=== PATIENT | male | born 1995 | race American Indian/Alaskan Native ===

== ENCOUNTER 2021-07-25 07:45 | Inpatient (IN) | payer MEDICARE, OTHER ==
--- NOTE | 2021-07-25 07:52 | Emergency Department Report ---
ED Chest Pain HPI - General Stated Complaint: CHEST PAIN Time Seen by Provider: 07/25/21 07:50 Source: patient, EMS, old records reviewed (1st visit here) Mode of arrival: Stretcher - History of Present Illness Initial Comments: 26-year-old male with a past medical history of end-stage renal disease curr ently on dialysis (Friday and Friday) x1 year and presents to the hospital complaining of chest pain since 4 AM. Patient complains of intermittent sharp/pressure chest pain to left side of his chest nonradiating. Mild shortness of breath. No nausea, vomiting reported. Patient states of a "cold sweat". Pain is moderate in intensity and worse with movement, palpation, and deep inspiration. Patient denies history of PE/DVT, calf tenderness, leg edema, recent travel. Patient denies no history of CAD in family and is a non- smoker. Denies history of known stress testing. Patient went to his dialysis today but was turned away and sent to the ER due to chest pain complaint. Patie nt denies infectious symptoms or cough. Patient is vaccinated for Covid. 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 - Related Data Allergies Allergy/AdvReac Type Severity Reaction Status Date / Time No Known Allergies Allergy Unverified 07/25/21 09:17 Heart Score - HEART Score History: Slightly suspicious EKG: Normal Age: < 45 Risk factors: 1-2 risk factors Troponin: < normal limit HEART Score: 1 - EKG Read Time Time EKG Completed: 08:24 EKG Read Time: 08:46 ED Review of Systems ROS: Stated complaint: CHEST PAIN Other details as noted in HPI Comment: All other systems reviewed and negative ED Physical Exam - Other Other exam information: General: No acute distress Head: Atraumatic Eyes: normal appearance ENT: Moist mucous membranes Neck: Normal appearance, no midline tenderness Chest: Clear to auscultation bilaterally, left mid chest left parasternal area with reproducible tenderness to palpate CV: Regular rate and rhythm, positive gallop Abdomen: Soft, normal bowel sounds, nontender, nondistended, no rebound or guarding Back: Normal inspection Extremity: Normal inspection, full range of motion, no calf tenderness or leg edema Neuro: Alert O x 3, no facial asymmetry, speech clear, no gross motor sensory deficit Psych: Appropriate behavior Skin: No rash ED Course Vital Signs 07/25/21 07/25/21 07/25/21 07:51 08:31 08:44 Temperature 98.5 F Pulse Rate 122 H Respiratory 26 H 17 Rate Blood Pressure Blood Pressure 136/89 [Right] O2 Sat by Pulse 96 100 99 Oximetry 07/25/21 07/25/21 07/25/21 08:45 10:01 10:15 Temperature Pulse Rate 125 H 118 H 118 H Respiratory 11 L 8 L 14 Rate Blood Pressure 132/83 140/84 140/84 Blood Pressure [Right] O2 Sat by Pulse 98 97 96 Oximetry 07/25/21 07/25/21 07/25/21 10:31 10:45 11:01 Temperature Pulse Rate 121 H 119 H 116 H Respiratory 15 19 17 Rate Blood Pressure 140/84 140/84 140/84 Blood Pressure [Right] O2 Sat by Pulse 99 98 99 Oximetry 07/25/21 07/25/21 07/25/21 11:15 11:31 11:45 Temperature Pulse Rate 116 H 114 H 113 H Respiratory 15 14 10 L Rate Blood Pressure 140/84 140/84 140/84 Blood Pressure [Right] O2 Sat by Pulse 97 98 96 Oximetry 07/25/21 12:01 Temperature Pulse Rate 112 H Respiratory 18 Rate Blood Pressure 140/84 Blood Pressure [Right] O2 Sat by Pulse 98 Oximetry - Reevaluation(s) Reevaluation #1: 07/25/21 15:26 pt states pain med made him sleepy. He declined additional meds. remains tachycardia - Consultations Consultation #1: 07/25/21 15:26 case d/w David with [facility], will evaluate pt, consult placed JOSE score - Jose Score Age > 65: (0) No Aspirin use within the Past 7 Days: (0) No 3 or more CAD Risk Factors: (0) No 2 or more Angina events in past 24 hrs: (0) No Known CAD with more than 50% Stenosis: (0) No Elevated Cardiac Markers: (0) No ST Deviation Greater than 0.5mm: (0) No JOSE Score: 0 ED Medical Decision Making - Lab Data Result diagrams: 07/25/21 08:16 07/25/21 08:16 Lab Results 07/25/21 07/25/21 07/25/21 Range/Units 08:16 08:16 09:20 WBC 8.8 (4.5-11.0) K/mm3 RBC 4.08 (3.65-5.03) M/mm3 Hgb 12.9 (11.8-15.2) gm/dl Hct 38.7 (35.5-45.6) % MCV 95 H (84-94) fl MCH 32 (28-32) pg MCHC 33 (32-34) % RDW 14.4 (13.2-15.2) % Plt Count 158 (140-440) K/mm3 Lymph % (Auto) 10.5 L (13.4-35.0) % [place] % (Auto) 8.4 H (0.0-7.3) % Eos % (Auto) 0.5 (0.0-4.3) % Baso % (Auto) 1.0 (0.0-1.8) % Lymph # (Auto) 0.9 L (1.2-5.4) K/mm3 [place] # (Auto) 0.7 (0.0-0.8) K/mm3 Eos # (Auto) 0.0 (0.0-0.4) K/mm3 Baso # (Auto) 0.1 (0.0-0.1) K/mm3 Seg Neutrophils % 79.6 H (40.0-70.0) % Seg Neutrophils # 7.0 (1.8-7.7) K/mm3 D-Dimer 484.91 H (0-234) ng/mlDDU Sodium 141 (137-145) mmol/L Potassium 4.5 (3.6-5.0) mmol/L Chloride 100.5 (98-107) mmol/L Carbon Dioxide 22 (22-30) mmol/L Anion Gap 23 mmol/L BUN 42 H (9-20) mg/dL Creatinine 15.6 H (0.8-1.3) mg/dL Estimated GFR 5 ml/min BUN/Creatinine Ratio 3 % Glucose 75 (75-100) mg/dL Calcium 10.0 (8.4-10.2) mg/dL Troponin T 0.023 (0.00-0.029) ng/mL TSH (0.270-4.200) mlU/mL Free T4 (0.76-1.46) ng/dL Hepatitis A IgM Ab (NonReactive) Hep Bs Antigen (Negative) Hep B Core IgM Ab (NonReactive) Hepatitis C Antibody (NonReactive) 07/25/21 07/25/21 07/25/21 Range/Units 09:20 09:20 10:29 WBC (4.5-11.0) K/mm3 RBC (3.65-5.03) M/mm3 Hgb (11.8-15.2) gm/dl Hct (35.5-45.6) % MCV (84-94) fl MCH (28-32) pg MCHC (32-34) % RDW (13.2-15.2) % Plt Count (140-440) K/mm3 Lymph % (Auto) (13.4-35.0) % [place] % (Auto) (0.0-7.3) % Eos % (Auto) (0.0-4.3) % Baso % (Auto) (0.0-1.8) % Lymph # (Auto) (1.2-5.4) K/mm3 [place] # (Auto) (0.0-0.8) K/mm3 Eos # (Auto) (0.0-0.4) K/mm3 Baso # (Auto) (0.0-0.1) K/mm3 Seg Neutrophils % (40.0-70.0) % Seg Neutrophils # (1.8-7.7) K/mm3 D-Dimer (0-234) ng/mlDDU Sodium (137-145) mmol/L Potassium (3.6-5.0) mmol/L Chloride (98-107) mmol/L Carbon Dioxide (22-30) mmol/L Anion Gap mmol/L BUN (9-20) mg/dL Creatinine (0.8-1.3) mg/dL Estimated GFR ml/min BUN/Creatinine Ratio % Glucose (75-100) mg/dL Calcium (8.4-10.2) mg/dL Troponin T 0.027 (0.00-0.029) ng/mL TSH 4.450 H (0.270-4.200) mlU/mL Free T4 1.19 (0.76-1.46) ng/dL Hepatitis A IgM Ab Non-reactive (NonReactive) Hep Bs Antigen Nonreactive (Negative) Hep B Core IgM Ab Non-reactive (NonReactive) Hepatitis C Antibody Non-reactive (NonReactive) - EKG Data -: EKG Interpreted by [place] EKG shows normal: sinus rhythm, ST-T waves (no stemi) Rate: tachycardia (126) - EKG Data 07/25/21 15:37 repeat ekg shows junctional tachycardia no stemi - Radiology Data Radiology results: report reviewed CHEST 1 VIEW 07/25/2021 8:14 AM INDICATION / CLINICAL INFORMATION: Chest Pain. COMPARISON: None available. FINDINGS: SUPPORT DEVICES: None. HEART / MEDIASTINUM: No significant abnormality. LUNGS / PLEURA: No significant pulmonary or pleural abnormality. No pneumothorax. ADDITIONAL FINDINGS: No significant additional findings. IMPRESSION: No acute abnormality. cc: HARI WILSON MD NUCLEAR MEDICINE PERFUSION LUNG SCAN INDICATION / CLINICAL INFORMATION: elevated ddimer cp sob. TECHNIQUE: 5.1 mCi of Tc-99m MAA were given by IV. COMPARISON: Chest radiograph dated 07/25/2021. FINDINGS: PERFUSION: No significant perfusion defects. ADDITIONAL FINDINGS: None. IMPRESSION: 1. Low probability for pulmonary embolism. - Medical Decision Making 26-year-old male with past medical history end-stage renal disease and hypertension presents to the hospital complaints of chest pain. Chest pain is reproducible with associated shortness of breath and persistent tachycardia. Mild elevation of D-dimer. V/Q negative for pulmonary embolism. Unfortunately unable to obtain CT angiogram due to lack of appropriate line. Dr. Hanna to per form dialysis. Cardiology consulted for review of chest pain and tachycardia. Hospitalist to admit. Critical Care Time: No Critical care attestation.: If time is entered above; I have spent that time in minutes in the direct care of this critically ill patient, excluding procedure time. ED Disposition Clinical Impression: ESRD (end stage renal disease), Chest pain, Junctional tachycardia, HTN (hypertension) Disposition: 09 ADMITTED INPATIENT Is pt being admited?: Yes Condition: Stable Instructions: Hypertension (ED) Time of Disposition: 15:38
--- NOTE | 2021-07-25 08:25 | XRay Report ---
CHEST 1 VIEW 07/25/2021 8:14 AM INDICATION / CLINICAL INFORMATION: Chest Pain. COMPARISON: None available. FINDINGS: SUPPORT DEVICES: None. HEART / MEDIASTINUM: No significant abnormality. LUNGS / PLEURA: No significant pulmonary or pleural abnormality. No pneumothorax. ADDITIONAL FINDINGS: No significant additional findings. IMPRESSION: No acute abnormality. Signer Name: Rigo Coley MD Signed: 07/25/2021 8:21 AM Workstation Name: [id number]
[2021-07-25 09:05] LABS: Basophils # (Auto) 0.1 K/mm3 (0.0-0.1); Eosinophils % (Auto) 0.5 % (0.0-4.3); Hematocrit 38.7 % (35.5-45.6); Hemoglobin 12.9 gm/dl (11.8-15.2); Lymphocytes # (Auto) 0.9 K/mm3 (1.2-5.4); Lymphocytes % (Auto) 10.5 % (13.4-35.0); Mean Corpuscular HGB Conc 33 % (32-34); Mean Corpuscular Volume 95 fl (84-94); Monocytes # (Auto) 0.7 K/mm3 (0.0-0.8); Monocytes % (Auto) 8.4 % (0.0-7.3); Platelet Count 158 K/mm3 (140-440); Red Blood Count 4.08 M/mm3 (3.65-5.03); Red Cell Distribution Width 14.4 % (13.2-15.2)
[2021-07-25] MEDS ORDERED: MORPHINE 4 MG/1 ML INJ IV NR (09:30)
[2021-07-25] MEDS ORDERED: ONDANSETRON 4 MG/2 ML INJ IV NR (09:30)
[2021-07-25 10:26] LABS: Free T4 (Free Thyroxine) 1.19 ng/dL (0.76-1.46)
[2021-07-25] MEDS ORDERED: SODIUM CHLORIDE 0.9% 100 ML IV PRN (10:30)
--- NOTE | 2021-07-25 11:49 | Electrocardiograph Report ---
[facility] Test Date: 2021-07-25 Test Time: 08:24:25 Pat Name: HARRISON VALVERDE Department: Room: Gender: M Rn Cvor: LORETTA : 1995 Requested By: HARI WILSON Order Number: [id number] Reading MD: Chente Gan Measurements Intervals [place] Rate: 126 P: 0 ME: 82 QRS: 63 QRSD: 80 T: 32 QT: 325 QTc: 471 Interpretive Statements Sinus tachycardia No previous ECG available for comparison Electronically Signed On 07-25-2021 11:49:12 EDT by Chente Gan
--- NOTE | 2021-07-25 12:58 | Emergency Department Report ---
ED General Adult HPI - General Chief complaint: Chest Pain Stated complaint: CHEST PAIN Time Seen by Provider: 07/25/21 07:50 Source: patient, EMS, old records reviewed (1st visit here) Mode of arrival: Stretcher Limitations: No Limitations - History of Present Illness Initial comments: This is a 26 year-old man with ESRD who presents for chest pain Patient usually dialyzes MWF at [facility]. Last HD 10.4 Denies any recent issues with HD, including dizziness, lightheadedness, cramping, chest pain on HD. However, began having chest pain this morning before dialysis and was unable to start dialysis due to pain. Currently, patient denies any new issues including dyspnea, edema, access issues, nausea, vomiting, headaches. Notes ongoing chest pain. Severity scale (0 -10): 10 - Related Data Allergies Allergy/AdvReac Type Severity Reaction Status Date / Time No Known Allergies Allergy Unverified 07/25/21 09:17 ED Review of Systems ROS: Stated complaint: CHEST PAIN Other details as noted in HPI Constitutional: no symptoms reported Eyes: denies: eye pain, eye discharge, vision change ENT: denies: ear pain, throat pain Respiratory: shortness of breath, SOB with exertion Cardiovascular: chest pain Gastrointestinal: denies: abdominal pain, nausea, diarrhea Skin: denies: rash, lesions Neurological: denies: headache, weakness, paresthesias Psychiatric: denies: anxiety, depression ED Past Medical Hx - Past Medical History Previous Medical History?: Yes Hx Hypertension: Yes Hx Renal Disease: Yes - Social History Smoking Status: Never Smoker ED Physical Exam - General Limitations: No Limitations General appearance: alert, in no apparent distress - Head Head exam: Present: atraumatic, normocephalic - Eye Eye exam: Present: normal appearance - ENT ENT exam: Present: normal exam - Neck Neck exam: Present: normal inspection - Respiratory Respiratory exam: Present: normal lung sounds bilaterally - Cardiovascular Cardiovascular Exam: Present: tachycardia - GI/Abdominal GI/Abdominal exam: Present: soft. Absent: tenderness - Back Exam Back exam: Present: normal inspection - Neurological Exam Neurological exam: Present: alert, oriented X3, CN II-XII intact - Psychiatric Psychiatric exam: Present: normal affect - Skin Skin exam: Present: warm ED Course Vital Signs 07/25/21 07/25/21 07/25/21 07:51 08:31 08:44 Temperature 98.5 F Pulse Rate 122 H Respiratory 26 H 17 Rate Blood Pressure Blood Pressure 136/89 [Right] O2 Sat by Pulse 96 100 99 Oximetry 07/25/21 07/25/21 07/25/21 08:45 10:01 10:15 Temperature Pulse Rate 125 H 118 H 118 H Respiratory 11 L 8 L 14 Rate Blood Pressure 132/83 140/84 140/84 Blood Pressure [Right] O2 Sat by Pulse 98 97 96 Oximetry 07/25/21 07/25/21 07/25/21 10:31 10:45 11:01 Temperature Pulse Rate 121 H 119 H 116 H Respiratory 15 19 17 Rate Blood Pressure 140/84 140/84 140/84 Blood Pressure [Right] O2 Sat by Pulse 99 98 99 Oximetry 07/25/21 07/25/21 07/25/21 11:15 11:31 11:45 Temperature Pulse Rate 116 H 114 H 113 H Respiratory 15 14 10 L Rate Blood Pressure 140/84 140/84 140/84 Blood Pressure [Right] O2 Sat by Pulse 97 98 96 Oximetry 07/25/21 12:01 Temperature Pulse Rate 112 H Respiratory 18 Rate Blood Pressure 140/84 Blood Pressure [Right] O2 Sat by Pulse 98 Oximetry ED Medical Decision Making - Lab Data Result diagrams: 07/25/21 08:16 07/25/21 08:16 - Medical Decision Making This is a 26 year old man who presents with chest pain # ESRD: plan for HD after chest pain evaluation completed to ensure no cardiac chest pain; note potential for CT-angio, HD after to ensure no PE if hemodynamically stable - daily labs - renally dose meds - avoid nephrotoxins - renal diet - verbal consent obtained for HD # Anemia: last hemoglobin at goal for ESRD # HTN: UF as tolerated. BP stable # Secondary Hyperparathyroidism: continue home binders as needed # Chest Pain, Tachycardia: care per primary/cardiology, agree with PE rule out Critical care attestation.: If time is entered above; I have spent that time in minutes in the direct care of this critically ill patient, excluding procedure time. ED Disposition Clinical Impression: ESRD (end stage renal disease) Disposition: 02 SHORT TERM HOSPITAL Is pt being admited?: Yes Condition: Stable Referrals: PRIMARY CARE, [Primary Care Provider] - 3-5 Days
[2021-07-25 13:15] LABS: Hepatitis C Virus Antibody Non-Reactive (NonReactive)
[2021-07-25 14:11] LABS: Hepatitis B Surface Antigen Nonreactive (Negative)
--- NOTE | 2021-07-25 15:02 | Nuclear Medicine Report ---
NUCLEAR MEDICINE PERFUSION LUNG SCAN INDICATION / CLINICAL INFORMATION: elevated ddimer cp sob. TECHNIQUE: 5.1 mCi of Tc-99m MAA were given by IV. COMPARISON: Chest radiograph dated 07/25/2021. FINDINGS: PERFUSION: No significant perfusion defects. ADDITIONAL FINDINGS: None. IMPRESSION: 1. Low probability for pulmonary embolism. Signer Name: German Tijerina MD Signed: 07/25/2021 2:57 PM Workstation Name: [id number]
[2021-07-25] MEDS ORDERED: LORazepam 2 MG/ML VIAL IV ONE (16:34)
--- NOTE | 2021-07-25 16:54 | Consultation ---
History of Present Illness Consult date: 07/25/21 Requesting physician: HARI WILSON Consult reason: chest pain, tachycardia History of present illness: Patient is a 26y/o male with a pmhx of ANCA Vasculitis, ESRD on HD, and HTN who presented to [facility] with a complaint of chest pain since 4am this morning. Patient reports that woke up this morning with a chest pain that he describes as a constant tightness/pressure on the left side of his chest. He rated the pain as 9/10. He states that he has not noticed if anything has relieved his pain but reports that palpation and movement worsen the pain. He further reports that lying worsens the pain and makes it a sharp pain. He also endorses lightheadedness, fatigue, slight SOB, orthopnea, palpitations, and a cold sweat. He denies nausea, vomiting, BLE edema. The patient missed his dialysis session today due to his chest pain. The patient is previously unknown to our practice. Cardiology is consulted for chest pain and sinus tachycardia. Past History Past Medical History: ESRD, hypertension, other (ANCA vasculitis) Past Surgical History: Other (AV fistula) Social history: no significant social history Family history: hypertension Medications and Allergies Allergies Allergy/AdvReac Type Severity Reaction Status Date / Time No Known Allergies Allergy Unverified 07/25/21 09:17 Active Meds: Active Medications Amlodipine Besylate (Amlodipine 10 Mg Tab) 10 mg PO QDAY [facility] Hydralazine HCl (Hydralazine 100 Mg Tab) 100 mg PO TID [facility] Sodium Chloride (Nacl 0.9%) 100 mls @ 999 mls/hr IV JULI PRN PRN Reason: Hypotension Losartan Potassium (Losartan 50 Mg Tab) 100 mg PO QDAY [facility] Metoprolol Tartrate (Metoprolol Tartrate 100 Mg Tab) 100 mg PO BID [facility] Review of Systems All systems: negative Constitutional: fatigue, weakness, no weight loss, no weight gain, no fever Ears, nose, mouth and throat: no nose pain, no nasal congestion, no nasal discharge Cardiovascular: chest pain, orthopnea, rapid/irregular heart beat, lightheadedness, shortness of breath, no edema, no syncope Respiratory: shortness of breath, dyspnea on exertion, no cough, no cough with sputum, no excessive sputum, no hemoptysis Gastrointestinal: no abdominal pain, no nausea, no vomiting Musculoskeletal: no neck pain, no shooting arm pain, no arm numbness/tingling Integumentary: no rash, no pruritis, no redness Neurological: no head injury, no transient paralysis, no paralysis Psychiatric: no anxiety, no memory loss Endocrine: no cold intolerance, no heat intolerance Hematologic/Lymphatic: no easy bruising, no easy bleeding Physical Examination Last Vital Signs Temp 98.5 F 07/25/21 07:51 Pulse 117 H 07/25/21 16:01 Resp 9 L 07/25/21 16:01 BP 134/100 07/25/21 16:01 Pulse Ox 99 07/25/21 16:01 General appearance: no acute distress HEENT: Positive: PERRL Neck: Positive: trachea midline Cardiac: Positive: Regular Rhythm, Tachycardia Lungs: Positive: Normal Breath Sounds Neuro: Positive: Grossly Intact Abdomen: Positive: Soft, Active Bowel Sounds Skin: Negative: Rash, Suspicious Lesions, Ulceration Extremities: Present: upper extr. pulses, lower extr. pulses. Absent: edema Results 07/25/21 08:16 07/25/21 08:16 CBC 07/25/21 Range/Units 08:16 WBC 8.8 (4.5-11.0) K/mm3 RBC 4.08 (3.65-5.03) M/mm3 Hgb 12.9 (11.8-15.2) gm/dl Hct 38.7 (35.5-45.6) % Plt Count 158 (140-440) K/mm3 Lymph # (Auto) 0.9 L (1.2-5.4) K/mm3 [place] # (Auto) 0.7 (0.0-0.8) K/mm3 Eos # (Auto) 0.0 (0.0-0.4) K/mm3 Baso # (Auto) 0.1 (0.0-0.1) K/mm3 Comprehensive Metabolic Panel 07/25/21 Range/Units 08:16 Sodium 141 (137-145) mmol/L Potassium 4.5 (3.6-5.0) mmol/L Chloride 100.5 (98-107) mmol/L Carbon Dioxide 22 (22-30) mmol/L BUN 42 H (9-20) mg/dL Creatinine 15.6 H (0.8-1.3) mg/dL Glucose 75 (75-100) mg/dL Calcium 10.0 (8.4-10.2) mg/dL - Imaging and Cardiology Echo: pending EKG: report reviewed, image reviewed EKG interpretations - Telemetry EKG Rhythm: Sinus Tachycardia - EKG Sinus rhythms and dysrhythmias: sinus tachycardia Assessment and Plan Patient is a 26y/o male with a pmhx of ANCA Vasculitis, ESRD on HD, and HTN who presented to [facility] with a complaint of chest pain Atypical Chest Pain HTN * Pain reproducible with palpation and movement. * EKG shows sinus tachycardia 126 no acute ischemic changes. Trops negativex2. CE pending * Patient outpatient regimen: amlodipine 10mg QD, metoprolol 100mg PO BID, losartan 100mg QD, hydralazine 100mg TID, furosemide 80mg PO QD Elevated D-Dimer * Dimer noted to be elevated. * VQ scan shows low probability of PE ESRD on HD * Nephrology consulted Plan: Echo pending. Lexiscan stress test in AM. NPO after midnight. Restart home BP medications. Will hold Lasix pending nephrology recs. Patient seen in conjunction with Dr. Gan who agrees with this plan of care. Will continue to follow - Patient Problems (1) ANCA-associated vasculitis Current Visit: Yes Status: Acute (2) Sinus tachycardia Current Visit: Yes Status: Acute (3) ESRD (end stage renal disease) Current Visit: Yes Status: Acute (4) Chest pain Current Visit: Yes Status: Acute (5) HTN (hypertension) Current Visit: Yes Status: Acute
[2021-07-25] MEDS: LOSARTAN 50 MG TAB PO SCH (17:12)
[2021-07-25] MEDS: amLODIPine 10 MG TAB PO SCH (17:12)
[2021-07-25] MEDS: METOPROLOL TARTRATE 100 MG TAB PO SCH ×2 (17:20→22:20)
[2021-07-25 17:26] LABS: Chol/HDL Ratio 3.09 %
--- NOTE | 2021-07-25 18:39 | History and Physical Report ---
History of Present Illness Date of examination: 07/25/21 Date of admission: 07/25/21 15:38 Chief complaint: Chest pain since 4:30 AM History of present illness: 26-year-old male with history of end-stage renal disease on hemodialysis Friday and Friday for the last 1 year and history of lupus and hypertension comes in for left-sided chest pain since 4:30 AM. Patient went to dialysis and that the hemodialysis was not done. Because of the chest pain. Patient was sent to emergency room for evaluation of chest pain. No shortness of breath. Chest pain is localized to the left mammary region. Reproducible. No radiation. No nausea no vomiting no shortness of breath. Chest pain is about 5 on a scale of 1-10. Heart Score - HEART Score History: Slightly suspicious EKG: Normal Age: < 45 Risk factors: 1-2 risk factors Troponin: < normal limit HEART Score: 1 Past History Past Medical History: ESRD, hypertension, other (ANCA vasculitis) Past Surgical History: Other (AV fistula) Social history: no significant social history Family history: hypertension Review of Systems All systems: negative Constitutional: fatigue, weakness, no weight loss, no weight gain, no fever Ears, nose, mouth and throat: no nose pain, no nasal congestion, no nasal discharge Cardiovascular: chest pain, orthopnea, rapid/irregular heart beat, lighthe adedness, shortness of breath, no edema, no syncope Respiratory: shortness of breath, dyspnea on exertion, no cough, no cough with sputum, no excessive sputum, no hemoptysis Gastrointestinal: no abdominal pain, no nausea, no vomiting Musculoskeletal: no neck pain, no shooting arm pain, no arm numbness/tingling Integumentary: no rash, no pruritis, no redness Neurological: no head injury, no transient paralysis, no paralysis Psychiatric: no anxiety, no memory loss Endocrine: no cold intolerance, no heat intolerance Hematologic/Lymphatic: no easy bruising, no easy bleeding Past History Past Medical History: ESRD, hypertension, other (ANCA vasculitis) Past Surgical History: Other (AV fistula) Social history: no significant social history Family history: hypertension Medications and Allergies Allergies Allergy/AdvReac Type Severity Reaction Status Date / Time No Known Allergies Allergy Unverified 07/25/21 09:17 Active Meds: Active Medications Amlodipine Besylate (Amlodipine 10 Mg Tab) 10 mg PO QDAY [facility] Last Admin: 07/25/21 17:12 Dose: 10 mg Documented by: Hydralazine HCl (Hydralazine 100 Mg Tab) 100 mg PO TID [facility] Sodium Chloride (Nacl 0.9%) 100 mls @ 999 mls/hr IV JULI PRN PRN Reason: Hypotension Losartan Potassium (Losartan 50 Mg Tab) 100 mg PO QDAY [facility] Last Admin: 07/25/21 17:12 Dose: 100 mg Documented by: Metoprolol Tartrate (Metoprolol Tartrate 100 Mg Tab) 100 mg PO BID [facility] Last Admin: 07/25/21 17:20 Dose: 100 mg Documented by: Exam - Constitutional Vitals: Temp Pulse Resp BP Pulse Ox 98.5 F 117 H 9 L 134/100 99 07/25/21 07:51 07/25/21 16:01 07/25/21 16:01 07/25/21 16:01 07/25/21 16:01 General appearance: Present: no acute distress, well-nourished - EENT Eyes: Present: PERRL ENT: hearing intact, clear oral mucosa - Neck Neck: Present: supple, normal ROM - Respiratory Respiratory effort: normal Respiratory: bilateral: CTA - Cardiovascular Heart rate: 78 Rhythm: regular Heart Sounds: Present: S1 & S2. Absent: rub, click Details: Chest pain is reproducible on the left mammary region. On palpation left mammary region is tender. Right-sided chest no tenderness present. - Extremities Extremities: pulses symmetrical, No edema Peripheral Pulses: within normal limits - Abdominal General gastrointestinal: Present: soft, non-tender, non-distended, normal bowel sounds Male genitourinary: Present: normal - Rectal Rectal Exam: deferred - Integumentary Integumentary: Present: clear, warm, dry - Musculoskeletal Musculoskeletal: gait normal, strength equal bilaterally - Psychiatric Psychiatric: appropriate mood/affect, intact judgment & insight - Neurologic Neurologic: CNII-XII intact, moves all extremities HEART Score - HEART Score EKG: Normal Age: < 45 Risk factors: 1-2 risk factors Troponin: Troponin T 0.038 ng/mL (0.00-0.029) H D 07/25/21 15:36 Troponin: < normal limit Results - Labs CBC & Chem 7: 07/26/21 05:13 07/26/21 05:13 Labs: Laboratory Last Values WBC 8.8 K/mm3 (4.5-11.0) 07/25/21 08:16 RBC 4.08 M/mm3 (3.65-5.03) 07/25/21 08:16 Hgb 12.9 gm/dl (11.8-15.2) 07/25/21 08:16 Hct 38.7 % (35.5-45.6) 07/25/21 08:16 MCV 95 fl (84-94) H 07/25/21 08:16 MCH 32 pg (28-32) 07/25/21 08:16 MCHC 33 % (32-34) 07/25/21 08:16 RDW 14.4 % (13.2-15.2) 07/25/21 08:16 Plt Count 158 K/mm3 (140-440) 07/25/21 08:16 Lymph % (Auto) 10.5 % (13.4-35.0) L 07/25/21 08:16 [place] % (Auto) 8.4 % (0.0-7.3) H 07/25/21 08:16 Eos % (Auto) 0.5 % (0.0-4.3) 07/25/21 08:16 Baso % (Auto) 1.0 % (0.0-1.8) 07/25/21 08:16 Lymph # (Auto) 0.9 K/mm3 (1.2-5.4) L 07/25/21 08:16 [place] # (Auto) 0.7 K/mm3 (0.0-0.8) 07/25/21 08:16 Eos # (Auto) 0.0 K/mm3 (0.0-0.4) 07/25/21 08:16 Baso # (Auto) 0.1 K/mm3 (0.0-0.1) 07/25/21 08:16 Seg Neutrophils % 79.6 % (40.0-70.0) H 07/25/21 08:16 Seg Neutrophils # 7.0 K/mm3 (1.8-7.7) 07/25/21 08:16 D-Dimer 484.91 ng/mlDDU (0-234) H 07/25/21 09:20 Sodium 141 mmol/L (137-145) 07/25/21 08:16 Potassium 4.5 mmol/L (3.6-5.0) 07/25/21 08:16 Chloride 100.5 mmol/L (98-107) 07/25/21 08:16 Carbon Dioxide 22 mmol/L (22-30) 07/25/21 08:16 Anion Gap 23 mmol/L 07/25/21 08:16 BUN 42 mg/dL (9-20) H 07/25/21 08:16 Creatinine 15.6 mg/dL (0.8-1.3) H 07/25/21 08:16 Estimated GFR 5 ml/min 07/25/21 08:16 BUN/Creatinine Ratio 3 % 07/25/21 08:16 Glucose 75 mg/dL (75-100) 07/25/21 08:16 Calcium 10.0 mg/dL (8.4-10.2) 07/25/21 08:16 Troponin T 0.038 ng/mL (0.00-0.029) H D 07/25/21 15:36 Triglycerides 86 mg/dL (2-149) 07/25/21 15:36 Cholesterol 130 mg/dL (50-199) 07/25/21 15:36 LDL Cholesterol Direct 75 mg/dL (50-130) 07/25/21 15:36 HDL Cholesterol 42 mg/dL (40-59) 07/25/21 15:36 Cholesterol/HDL Ratio 3.09 % 07/25/21 15:36 TSH 4.450 mlU/mL (0.270-4.200) H 07/25/21 09:20 Free T4 1.19 ng/dL (0.76-1.46) 07/25/21 09:20 Hepatitis A IgM Ab Non-reactive (NonReactive) 07/25/21 09:20 Hep Bs Antigen Nonreactive (Negative) 07/25/21 09:20 Hep B Core IgM Ab Non-reactive (NonReactive) 07/25/21 09:20 Hepatitis C Antibody Non-reactive (NonReactive) 07/25/21 09:20 Short CBC 07/25/21 07/26/21 Range/Units 08:16 05:13 WBC 8.8 5.8 (4.5-11.0) K/mm3 Hgb 12.9 10.6 L (11.8-15.2) gm/dl Hct 38.7 31.8 L D (35.5-45.6) % Plt Count 158 146 (140-440) K/mm3 BMP 07/25/21 07/26/21 08:16 05:13 Sodium 141 138 Potassium 4.5 4.8 Chloride 100.5 100.1 Carbon Dioxide 22 24 BUN 42 H 56 H Creatinine 15.6 H 19.7 H Glucose 75 74 L Calcium 10.0 9.5 Cardiac Enzymes 07/25/21 07/25/21 07/25/21 Range/Units 08:16 10:29 15:36 Troponin T 0.023 0.027 0.038 H D (0.00-0.029) ng/mL Liver Function 07/26/21 Range/Units 05:13 Total Bilirubin 0.40 (0.1-1.2) mg/dL AST 8 (5-40) units/L ALT < 5 L (7-56) units/L Alkaline Phosphatase 47 (35-129) units/L Albumin 3.8 L (3.9-5) g/dL Assessment and Plan Advance Directives: Yes (Full code) VTE prophylaxis?: Chemical Plan of care discussed with patient/family: Yes - Patient Problems (1) ANCA-associated vasculitis Current Visit: Yes Status: Acute (2) Chest pain Current Visit: Yes Status: Acute Plan to address problem: Chest pain is consistent with costochondritis. We will get serial cardiac enzymes and Lexiscan in the morning. If Lexiscan is not done tomorrow because of the imaging studies he had in the emergency room patient may be discharged tomorrow with outpatient Lexiscan. (3) ESRD (end stage renal disease) Current Visit: Yes Status: Chronic Plan to address problem: Continue hemodialysis Nephrology consult. (4) HTN (hypertension) Current Visit: Yes Status: Chronic Qualifiers: Hypertension type: primary hypertension Qualified Code(s): I10 - Essential (primary) hypertension Plan to address problem: Continue antihypertensives and adjust medications. (5) Junctional tachycardia Current Visit: Yes Status: Acute Plan to address problem: Resolved in the emergency room (6) DVT prophylaxis Current Visit: Yes Status: Acute Plan to address problem: On heparin and GI prophylaxis
[2021-07-25] MEDS ORDERED: oxyCODONE /ACETAMINOPHEN 5-325MG TAB PO PRN (18:43)
[2021-07-25] MEDS ORDERED: ACETAMINOPHEN 325 MG TAB PO PRN (18:43)
[2021-07-25] MEDS ORDERED: METOCLOPRAMIDE 10 MG/2 ML INJ IV PRN (18:43)
[2021-07-25] MEDS ORDERED: ONDANSETRON 4 MG/2 ML INJ IV PRN (18:43)
[2021-07-25] MEDS: hydrALAZINE 100 MG TAB PO SCH (21:56)
[2021-07-25] MEDS: FAMOTIDINE 10 MG TAB PO SCH (22:14)
[2021-07-25] MEDS: HEPARIN 5,000 UNIT/1 ML VIAL SUB-Q SCH (22:15)
[2021-07-26 05:44] LABS: Basophils # (Auto) 0.1 K/mm3 (0.0-0.1); Basophils % (Auto) 2.3 % (0.0-1.8); Eosinophils # (Auto) 0.1 K/mm3 (0.0-0.4); Eosinophils % (Auto) 1.4 % (0.0-4.3); Hematocrit 31.8 % (35.5-45.6); Hemoglobin 10.6 gm/dl (11.8-15.2); Lymphocytes # (Auto) 1.5 K/mm3 (1.2-5.4); Lymphocytes % (Auto) 26.5 % (13.4-35.0); Mean Corpuscular HGB Conc 33 % (32-34); Mean Corpuscular Volume 94 fl (84-94); Monocytes # (Auto) 0.5 K/mm3 (0.0-0.8); Monocytes % (Auto) 7.9 % (0.0-7.3); Platelet Count 146 K/mm3 (140-440); Red Blood Count 3.37 M/mm3 (3.65-5.03); Red Cell Distribution Width 14.6 % (13.2-15.2)
[2021-07-26 06:18] LABS: Albumin 3.8 g/dL (3.9-5); Blood Urea Nitrogen 56 mg/dL (9-20); Calcium 9.5 mg/dL (8.4-10.2); Hemolysis Index 5
[2021-07-26 06:20] LABS: Alanine Aminotransferase < 5 units/L (7-56); BUN/Creatinine Ratio 3
[2021-07-26] MEDS: hydrALAZINE 100 MG TAB PO SCH ×3 (07:48→20:23)
[2021-07-26] MEDS: METOPROLOL TARTRATE 100 MG TAB PO SCH ×2 (09:53→23:34)
[2021-07-26] MEDS: amLODIPine 10 MG TAB PO SCH (09:57)
[2021-07-26] MEDS: LOSARTAN 50 MG TAB PO SCH (09:57)
[2021-07-26] MEDS: HEPARIN 5,000 UNIT/1 ML VIAL SUB-Q SCH ×2 (09:58→23:34)
[2021-07-26] MEDS: FAMOTIDINE 10 MG TAB PO SCH ×2 (09:58→23:34)
--- NOTE | 2021-07-26 10:36 | Electrocardiograph Report ---
[facility] Test Date: 2021-07-25 Test Time: 15:26:40 Pat Name: HARRISON VALVERDE Department: Room: [place] [address] Gender: M [employer]: KEKE : 1995 Requested By: HARI WILSON Order Number: [id number] Reading MD: Chente Gan Measurements Intervals [place] Rate: 110 P: MN: QRS: 59 QRSD: 64 T: 24 QT: 319 QTc: 433 Interpretive Statements Junctional tachycardia Compared to ECG 07/25/2021 08:24:25 Junctional tachycardia now present Sinus tachycardia no longer present Electronically Signed On 07-26-2021 10:35:33 EDT by Chente Gan
--- NOTE | 2021-07-26 12:45 | Progress Note ---
Assessment and Plan This is a 26 year old man who presents with chest pain # ESRD: plan for HD today for toxin clearance, continue HD MWF per outpatient schedule thereafter - daily labs - renally dose meds - avoid nephrotoxins - renal diet - verbal consent obtained for HD # Anemia: last hemoglobin at goal for ESRD # HTN: UF as tolerated. BP stable this AM # Secondary Hyperparathyroidism: continue home binders as needed # Chest Pain, Tachycardia: care per primary/cardiology, agree with PE rule out, HR needs to be <120 for safe HD Subjective Date of service: 07/26/21 Interval history: No chest pain noted this AM, breathing ok. Did not get HD yesterday due to delays in IV access. Does note nausea this AM Objective - Exam Narrative Exam: Constitutional: no acute distress Head: NC/AT Neck: supple Lungs: clear to auscultation CV: RRR, no M/R/G Abdomen: soft, non-tender, bowel sounds present Back: nontender Extremities: no edema, pulses WNL Skin: intact Neuro: no focal deficits, alert and oriented x4 - Vital Signs Vital signs: Vital Signs - 12hr 07/26/21 07/26/21 07/26/21 00:45 01:01 01:15 Temperature Pulse Rate 74 68 71 Respiratory 13 13 Rate Blood Pressure 102/48 112/48 112/48 Blood Pressure [Right] O2 Sat by Pulse 98 99 99 Oximetry O2 Sat by Pulse Oximetry [ Bilateral Throughout] 07/26/21 07/26/21 07/26/21 01:31 01:45 02:01 Temperature Pulse Rate 74 72 82 Respiratory 21 15 13 Rate Blood Pressure 112/48 112/48 107/55 Blood Pressure [Right] O2 Sat by Pulse 99 100 97 Oximetry O2 Sat by Pulse Oximetry [ Bilateral Throughout] 07/26/21 07/26/21 07/26/21 02:15 02:31 02:45 Temperature Pulse Rate 70 73 70 Respiratory 13 19 Rate Blood Pressure 107/55 107/55 107/55 Blood Pressure [Right] O2 Sat by Pulse 99 100 97 Oximetry O2 Sat by Pulse Oximetry [ Bilateral Throughout] 07/26/21 07/26/21 07/26/21 03:01 03:15 03:31 Temperature Pulse Rate 68 77 77 Respiratory 17 14 18 Rate Blood Pressure 106/60 106/60 106/60 Blood Pressure [Right] O2 Sat by Pulse 98 98 99 Oximetry O2 Sat by Pulse Oximetry [ Bilateral Throughout] 07/26/21 07/26/21 07/26/21 03:45 04:01 04:15 Temperature Pulse Rate 74 66 69 Respiratory 10 L Rate Blood Pressure 106/60 108/59 108/59 Blood Pressure [Right] O2 Sat by Pulse 99 97 96 Oximetry O2 Sat by Pulse Oximetry [ Bilateral Throughout] 07/26/21 07/26/21 07/26/21 04:30 04:45 05:00 Temperature Pulse Rate 72 74 67 Respiratory 12 13 13 Rate Blood Pressure 108/59 108/59 109/67 Blood Pressure [Right] O2 Sat by Pulse 96 99 100 Oximetry O2 Sat by Pulse Oximetry [ Bilateral Throughout] 07/26/21 07/26/21 07/26/21 05:15 05:31 05:45 Temperature Pulse Rate 81 69 70 Respiratory 12 12 Rate Blood Pressure 109/67 109/67 109/67 Blood Pressure [Right] O2 Sat by Pulse 100 99 100 Oximetry O2 Sat by Pulse Oximetry [ Bilateral Throughout] 07/26/21 07/26/21 07/26/21 06:00 06:15 06:31 Temperature Pulse Rate 84 71 70 Respiratory 15 15 Rate Blood Pressure 118/60 118/60 118/60 Blood Pressure [Right] O2 Sat by Pulse 97 98 Oximetry O2 Sat by Pulse Oximetry [ Bilateral Throughout] 07/26/21 07/26/21 07/26/21 06:45 07:01 07:45 Temperature 98.9 F Pulse Rate 71 64 67 Respiratory 19 Rate Blood Pressure 118/60 118/60 Blood Pressure 111/58 [Right] O2 Sat by Pulse 98 100 99 Oximetry O2 Sat by Pulse Oximetry [ Bilateral Throughout] 07/26/21 07/26/21 07/26/21 07:46 09:53 09:57 Temperature Pulse Rate 60 Respiratory 19 Rate Blood Pressure 114/59 Blood Pressure [Right] O2 Sat by Pulse 99 Oximetry O2 Sat by Pulse Oximetry [ Bilateral Throughout] 07/26/21 07/26/21 07/26/21 10:26 10:52 11:00 Temperature 98.4 F Pulse Rate 72 69 68 Respiratory 16 Rate Blood Pressure 125/67 114/65 124/70 Blood Pressure [Right] O2 Sat by Pulse Oximetry O2 Sat by Pulse 98 Oximetry [ Bilateral Throughout] 07/26/21 07/26/21 07/26/21 11:15 11:30 11:45 Temperature Pulse Rate 72 71 71 Respiratory Rate Blood Pressure 127/69 114/70 131/75 Blood Pressure [Right] O2 Sat by Pulse Oximetry O2 Sat by Pulse Oximetry [ Bilateral Throughout] 07/26/21 07/26/21 12:00 12:15 Temperature Pulse Rate 74 71 Respiratory Rate Blood Pressure 132/78 131/77 Blood Pressure [Right] O2 Sat by Pulse Oximetry O2 Sat by Pulse Oximetry [ Bilateral Throughout] - Lab 07/26/21 05:13 07/26/21 05:13 Most recent lab results Calcium 9.5 mg/dL (8.4-10.2) 07/26/21 05:13 Medications & Allergies - Medications Allergies/Adverse Reactions: Allergies No Known Allergies Allergy (Verified 07/26/21 09:40) Home Medications: Home Medications Medication Instructions Recorded Confirmed Last Taken Type Ferric Citrate (Nf) [Auryxia] 210 mg PO AC 07/26/21 07/26/21 Unknown History Folic Acid/Vit B Complex and C 1 tab PO QDAY 07/26/21 07/26/21 Unknown History [Dialyvite 800 Chewable Wafer] Furosemide [Lasix TAB] 80 mg PO QDAY 07/26/21 07/26/21 Unknown History Lidocaine HCl [Pain Relief] 80 ml TP QDAY 07/26/21 07/26/21 Unknown History Losartan Potassium 100 mg PO QDAY 07/26/21 07/26/21 Unknown History Ondansetron (Nf) [Zofran TAB] 8 mg PO Q8HR PRN 07/26/21 07/26/21 Unknown History amLODIPine [Norvasc] 10 mg PO DAILY 07/26/21 07/26/21 Unknown History hydrALAZINE [Apresoline TAB] 100 mg PO TID 07/26/21 07/26/21 Unknown History Active Medications: Generic Name Dose Route Start Last Admin Trade Name Freq PRN Reason Stop Dose Admin Acetaminophen 650 mg 07/25/21 18:43 Acetaminophen 325 Mg Tab PO Q4H PRN Pain MILD(1-3)/Fever >100.5/DEWITT Amlodipine Besylate 10 mg 07/25/21 17:00 07/26/21 09:57 Amlodipine 10 Mg Tab PO Not Given QDAY [facility] Famotidine 10 mg 07/25/21 22:00 07/26/21 09:58 Famotidine 10 Mg Tab PO 10 mg BID [facility] Administration Heparin Sodium (Porcine) 5,000 unit 07/25/21 22:00 07/26/21 09:58 Heparin 5,000 Unit/1 Ml Vial SUB-Q Not Given Q12HR [facility] Hydralazine HCl 100 mg 07/25/21 20:00 07/26/21 07:48 Hydralazine 100 Mg Tab PO Not Given TID [facility] Hydromorphone HCl 0.5 mg 07/25/21 18:43 Hydromorphone 1 Mg/1 Ml Inj IV Q3H PRN Pain , Severe (7-10) Sodium Chloride 100 mls @ 999 mls/hr 07/25/21 10:30 Nacl 0.9% IV JULI PRN Hypotension Losartan Potassium 100 mg 07/25/21 17:00 07/26/21 09:57 Losartan 50 Mg Tab PO Not Given QDAY [facility] Metoclopramide HCl 5 mg 07/25/21 18:43 Metoclopramide 10 Mg/2 Ml Inj IV Q6H PRN Nausea And Vomiting Metoprolol Tartrate 100 mg 07/25/21 17:00 07/26/21 09:53 Metoprolol Tartrate 100 Mg Tab PO Not Given BID [facility] Ondansetron HCl 4 mg 07/25/21 18:43 Ondansetron 4 Mg/2 Ml Inj IV Q8H PRN Nausea And Vomiting Oxycodone/Acetaminophen 1 tab 07/25/21 18:43 Oxycodone /Acetaminophen 5-325mg Tab PO Q6H PRN Pain, Moderate (4-6) Sodium Chloride 10 ml 07/25/21 22:00 07/26/21 09:52 Sodium Chloride 0.9% 10 Ml Flush Syringe IV 10 ml BID [facility] Administration Sodium Chloride 10 ml 07/25/21 18:43 Sodium Chloride 0.9% 10 Ml Flush Syringe IV PRN PRN LINE FLUSH
--- NOTE | 2021-07-26 14:00 | Progress Note ---
Assessment and Plan Assessment and plan: 26-year-old male with history of end-stage renal disease on hemodialysis Friday and Friday for the last 1 year and history of lupus and hypertension comes in for left-sided chest pain early yesterday morning. #Acute coronary syndrome #Costochondritis (possible) #Junctional tachycardia-resolved -Troponins 0.027 -->0.038; continuing to trend -Nuclear pulmonary scan (07/25/2021) negative for PE. -Elevated troponins likely secondary to ESRD and missed dialysis session. Patient is currently chest pain-free. -Cardiology consulted; appreciate recs. Unable to do stress test due to recent nuclear pulmonary scan. Stress test scheduled for 07/27/2021. -We will make patient n.p.o. at midnight. #ESRD on hemodialysis #ANCA associated vasculitis -Home regimen of Friday, Friday, Friday hemodialysis -Patient endorses adhering to strict dialysis regimen. -Nephrology consulted; appreciate recs. Planned hemodialysis today for toxin removal. #Essential hypertension-controlled -Restart home antihypertensives: Amlodipine 10 mg daily, losartan 100 mg daily, metoprolol tartrate 100 mg twice daily, and p.o. hydralazine 100 mg 3 times daily. -Continue to monitor #Presumed anemia of chronic disease -Hemoglobin 10.6 -Continue to monitor. Transfuse if hemoglobin <7 or patient becomes symptomatic #DVT prophylaxis -Continue subcutaneous heparin 5000 units every 8 hours Disposition Plan: Pending stress test in a.m. Possible discharge tomorrow. Total Time Spent with Patient (Minutes): 35 History Interval history: No acute events overnight. Hospitalist Physical - Constitutional Vitals: Temp Pulse Resp BP Pulse Ox 98.4 F 71 16 131/77 98 07/26/21 10:26 07/26/21 12:15 07/26/21 10:26 07/26/21 12:15 07/26/21 10:26 General appearance: Present: no acute distress, well-nourished - EENT Eyes: Present: PERRL, EOM intact ENT: hearing intact, clear oral mucosa, dentition normal - Neck Neck: Present: supple, normal ROM - Respiratory Respiratory effort: normal - Cardiovascular Rhythm: regular Heart Sounds: Present: S1 & S2 - Extremities Extremities: no ischemia, pulses intact, pulses symmetrical, No edema, normal temperature, normal color Peripheral Pulses: within normal limits - Abdominal General gastrointestinal: soft, non-tender, non-distended, normal bowel sounds - Integumentary Integumentary: Present: clear, warm, dry - Psychiatric Psychiatric: appropriate mood/affect, intact judgment & insight, memory intact, cooperative - Neurologic Neurologic: CNII-XII intact, moves all extremities - Allied Health Allied health notes reviewed: nursing HEART Score - HEART Score History: Slightly suspicious EKG: Normal Age: < 45 Risk factors: 1-2 risk factors Troponin: Troponin T 0.038 ng/mL (0.00-0.029) H D 07/25/21 15:36 Troponin: 1-3x normal limit HEART Score: 2 - Critical Actions Critical Actions: 0-3 pts:0.9-1.7%risk of adverse cardiac event.Candidate for discharge Results - Labs CBC & Chem 7: 07/26/21 05:13 07/26/21 05:13 Labs: Laboratory Last Values WBC 5.8 K/mm3 (4.5-11.0) 07/26/21 05:13 RBC 3.37 M/mm3 (3.65-5.03) L 07/26/21 05:13 Hgb 10.6 gm/dl (11.8-15.2) L 07/26/21 05:13 Hct 31.8 % (35.5-45.6) L D 07/26/21 05:13 MCV 94 fl (84-94) 07/26/21 05:13 MCH 31 pg (28-32) 07/26/21 05:13 MCHC 33 % (32-34) 07/26/21 05:13 RDW 14.6 % (13.2-15.2) 07/26/21 05:13 Plt Count 146 K/mm3 (140-440) 07/26/21 05:13 Lymph % (Auto) 26.5 % (13.4-35.0) 07/26/21 05:13 [place] % (Auto) 7.9 % (0.0-7.3) H 07/26/21 05:13 Eos % (Auto) 1.4 % (0.0-4.3) 07/26/21 05:13 Baso % (Auto) 2.3 % (0.0-1.8) H 07/26/21 05:13 Lymph # (Auto) 1.5 K/mm3 (1.2-5.4) 07/26/21 05:13 [place] # (Auto) 0.5 K/mm3 (0.0-0.8) 07/26/21 05:13 Eos # (Auto) 0.1 K/mm3 (0.0-0.4) 07/26/21 05:13 Baso # (Auto) 0.1 K/mm3 (0.0-0.1) 07/26/21 05:13 Seg Neutrophils % 61.9 % (40.0-70.0) 07/26/21 05:13 Seg Neutrophils # 3.6 K/mm3 (1.8-7.7) 07/26/21 05:13 D-Dimer 484.91 ng/mlDDU (0-234) H 07/25/21 09:20 Sodium 138 mmol/L (137-145) 07/26/21 05:13 Potassium 4.8 mmol/L (3.6-5.0) 07/26/21 05:13 Chloride 100.1 mmol/L (98-107) 07/26/21 05:13 Carbon Dioxide 24 mmol/L (22-30) 07/26/21 05:13 Anion Gap 19 mmol/L 07/26/21 05:13 BUN 56 mg/dL (9-20) H 07/26/21 05:13 Creatinine 19.7 mg/dL (0.8-1.3) H 07/26/21 05:13 Estimated GFR 4 ml/min 07/26/21 05:13 BUN/Creatinine Ratio 3 % 07/26/21 05:13 Glucose 74 mg/dL (75-100) L 07/26/21 05:13 Calcium 9.5 mg/dL (8.4-10.2) 07/26/21 05:13 Total Bilirubin 0.40 mg/dL (0.1-1.2) 07/26/21 05:13 AST 8 units/L (5-40) 07/26/21 05:13 ALT < 5 units/L (7-56) L 07/26/21 05:13 Alkaline Phosphatase 47 units/L (35-129) 07/26/21 05:13 Troponin T 0.038 ng/mL (0.00-0.029) H D 07/25/21 15:36 Total Protein 7.1 g/dL (6.3-8.2) 07/26/21 05:13 Albumin 3.8 g/dL (3.9-5) L 07/26/21 05:13 Albumin/Globulin Ratio 1.2 % 07/26/21 05:13 Triglycerides 86 mg/dL (2-149) 07/25/21 15:36 Cholesterol 130 mg/dL (50-199) 07/25/21 15:36 LDL Cholesterol Direct 75 mg/dL (50-130) 07/25/21 15:36 HDL Cholesterol 42 mg/dL (40-59) 07/25/21 15:36 Cholesterol/HDL Ratio 3.09 % 07/25/21 15:36 TSH 4.450 mlU/mL (0.270-4.200) H 07/25/21 09:20 Free T4 1.19 ng/dL (0.76-1.46) 07/25/21 09:20 Hepatitis A IgM Ab Non-reactive (NonReactive) 07/25/21 09:20 Hep Bs Antigen Nonreactive (Negative) 07/25/21 09:20 Hep B Core IgM Ab Non-reactive (NonReactive) 07/25/21 09:20 Hepatitis C Antibody Non-reactive (NonReactive) 07/25/21 09:20 Active Medications - Current Medications Current Medications: Generic Name Dose Route Start Last Admin Trade Name Freq PRN Reason Stop Dose Admin Acetaminophen 650 mg 07/25/21 18:43 Acetaminophen 325 Mg Tab PO Q4H PRN Pain MILD(1-3)/Fever >100.5/[facility] Amlodipine Besylate 10 mg 07/25/21 17:00 07/26/21 09:57 Amlodipine 10 Mg Tab PO Not Given QDAY [facility] Famotidine 10 mg 07/25/21 22:00 07/26/21 09:58 Famotidine 10 Mg Tab PO 10 mg BID [facility] Administration Heparin Sodium (Porcine) 5,000 unit 07/25/21 22:00 07/26/21 09:58 Heparin 5,000 Unit/1 Ml Vial SUB-Q Not Given Q12HR [facility] Hydralazine HCl 100 mg 07/25/21 20:00 07/26/21 07:48 Hydralazine 100 Mg Tab PO Not Given TID [facility] Hydromorphone HCl 0.5 mg 07/25/21 18:43 Hydromorphone 1 Mg/1 Ml Inj IV Q3H PRN Pain , Severe (7-10) Sodium Chloride 100 mls @ 999 mls/hr 07/25/21 10:30 Nacl 0.9% IV JULI PRN Hypotension Losartan Potassium 100 mg 07/25/21 17:00 07/26/21 09:57 Losartan 50 Mg Tab PO Not Given QDAY [facility] Metoclopramide HCl 5 mg 07/25/21 18:43 Metoclopramide 10 Mg/2 Ml Inj IV Q6H PRN Nausea And Vomiting Metoprolol Tartrate 100 mg 07/25/21 17:00 07/26/21 09:53 Metoprolol Tartrate 100 Mg Tab PO Not Given BID [facility] Ondansetron HCl 4 mg 07/25/21 18:43 Ondansetron 4 Mg/2 Ml Inj IV Q8H PRN Nausea And Vomiting Oxycodone/Acetaminophen 1 tab 07/25/21 18:43 Oxycodone /Acetaminophen 5-325mg Tab PO Q6H PRN Pain, Moderate (4-6) Sodium Chloride 10 ml 07/25/21 22:00 07/26/21 09:52 Sodium Chloride 0.9% 10 Ml Flush Syringe IV 10 ml BID PEDRO Administration Sodium Chloride 10 ml 07/25/21 18:43 Sodium Chloride 0.9% 10 Ml Flush Syringe IV PRN PRN LINE FLUSH
--- NOTE | 2021-07-26 15:21 | Progress Note ---
Assessment and Plan Unable to complete stress test this AM d/t prior VQ scan. Echo reviewed - EF 55-60%, impaired LV relaxation. Pt is currently chest pain-free. Suspect non-NE troponin elevation in the setting of ESRD/volume overload. Plan for Lexiscan stress MPI in AM. NPO after midnight. Pt seen in conjunction with Dr. Zbigniew Gan, who agrees with the assessment and plan of care. 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 Chest pain-free. Still SOB and orthopneic upon assessment but improving. Denies any additional cardiac complaints. No tele data available for review. Objective Last Vital Signs Temp 98.9 F 07/26/21 14:30 Pulse 78 07/26/21 15:09 Resp 19 07/26/21 15:09 BP 122/71 07/26/21 15:09 Pulse Ox 99 07/26/21 15:09 - Physical Examination General: No Apparent Distress HEENT: Positive: EOMI, Normocephaly Neck: Positive: neck supple, trachea midline Cardiac: Positive: S1/S2. Negative: Audible Murmur Lungs: Positive: Decreased Breath Sounds Neuro: Positive: Grossly Intact Abdomen: Positive: Soft. Negative: Tender Skin: Negative: Rash Musculoskeletal: No Pain Extremities: Present: lower extr. pulses. Absent: edema - Labs and Meds Cardiac Enzymes 07/26/21 Range/Units 05:13 AST 8 (5-40) units/L Lipids 07/25/21 Range/Units 15:36 Triglycerides 86 (2-149) mg/dL Cholesterol 130 (50-199) mg/dL HDL Cholesterol 42 (40-59) mg/dL Cholesterol/HDL Ratio 3.09 % CBC 07/26/21 Range/Units 05:13 WBC 5.8 (4.5-11.0) K/mm3 RBC 3.37 L (3.65-5.03) M/mm3 Hgb 10.6 L (11.8-15.2) gm/dl Hct 31.8 L D (35.5-45.6) % Plt Count 146 (140-440) K/mm3 Lymph # (Auto) 1.5 (1.2-5.4) K/mm3 [place] # (Auto) 0.5 (0.0-0.8) K/mm3 Eos # (Auto) 0.1 (0.0-0.4) K/mm3 Baso # (Auto) 0.1 (0.0-0.1) K/mm3 Comprehensive Metabolic Panel 07/26/21 Range/Units 05:13 Sodium 138 (137-145) mmol/L Potassium 4.8 (3.6-5.0) mmol/L Chloride 100.1 (98-107) mmol/L Carbon Dioxide 24 (22-30) mmol/L BUN 56 H (9-20) mg/dL Creatinine 19.7 H (0.8-1.3) mg/dL Glucose 74 L (75-100) mg/dL Calcium 9.5 (8.4-10.2) mg/dL AST 8 (5-40) units/L ALT < 5 L (7-56) units/L Alkaline Phosphatase 47 (35-129) units/L Total Protein 7.1 (6.3-8.2) g/dL Albumin 3.8 L (3.9-5) g/dL - Imaging and Cardiology EKG: report reviewed, image reviewed Pharmacologic stress test: pending Echo: report reviewed - EKG Supraventricular dysrhythmia: automatic junctional
[2021-07-27] MEDS ORDERED: REGADENOSON 0.4 MG/5 ML INJ IV ONE (06:48)
[2021-07-27] MEDS: hydrALAZINE 100 MG TAB PO SCH ×2 (08:30→17:54)
[2021-07-27] MEDS ORDERED: SODIUM CHLORIDE 0.9% 100 ML IV PRN (09:00)
--- NOTE | 2021-07-27 09:47 | Progress Note ---
Assessment and Plan This is a 26 year old man who presents with chest pain # ESRD: s/p HD yesterday for toxin clearance, continue HD [facility] per outpatient schedule starting today - daily labs - renally dose meds - avoid nephrotoxins - renal diet - verbal consent obtained for HD # Anemia: last hemoglobin at goal for ESRD # HTN: UF as tolerated. BP stable this AM # Secondary Hyperparathyroidism: continue home binders as needed # Chest Pain, Tachycardia: care per primary/cardiology, nuclear stress test results pending. Ok to discharge from kidney standpoint after HD if no active chest pain and cleared from cardiac perspective, will resume outpatient HD at [facility] Subjective Date of service: 07/27/21 Principal diagnosis: Chest Pain Interval history: No chest pain noted this AM, had HD yesterday and tolerated well. Stress test done this AM, results pending. Down in HD unit for regular HD treatment, would like for 1L fluid removal challenge today although he is below his dry weight Objective - Exam Narrative Exam: Constitutional: no acute distress Head: NC/AT Neck: supple Lungs: clear to auscultation CV: RRR, no M/R/G Abdomen: soft, non-tender, bowel sounds present Back: nontender Extremities: no edema, pulses WNL Skin: intact Neuro: no focal deficits, alert and oriented x4 - Vital Signs Vital signs: Vital Signs - 12hr 07/26/21 07/26/21 07/27/21 22:23 23:50 03:43 Temperature 98.8 F 98.6 F Pulse Rate 70 72 Respiratory 18 18 Rate Blood Pressure 120/70 97/59 O2 Sat by Pulse 97 97 98 Oximetry 07/27/21 07/27/21 07/27/21 08:09 08:13 08:34 Temperature Pulse Rate Respiratory Rate Blood Pressure 122/80 121/79 123/86 O2 Sat by Pulse Oximetry 07/27/21 07/27/21 07/27/21 08:39 08:40 08:41 Temperature Pulse Rate Respiratory Rate Blood Pressure 131/83 126/80 125/77 O2 Sat by Pulse Oximetry 07/27/21 07/27/21 07/27/21 08:42 08:43 08:44 Temperature Pulse Rate Respiratory Rate Blood Pressure 120/72 122/73 123/71 O2 Sat by Pulse Oximetry - Lab 07/26/21 05:13 07/26/21 05:13 Most recent lab results Calcium 9.5 mg/dL (8.4-10.2) 07/26/21 05:13 Medications & Allergies - Medications Allergies/Adverse Reactions: Allergies No Known Allergies Allergy (Verified 07/26/21 09:40) Home Medications: Home Medications Medication Instructions Recorded Confirmed Last Taken Type Ferric Citrate (Nf) [Auryxia] 210 mg PO AC 07/26/21 07/26/21 Unknown History Folic Acid/Vit B Complex and C 1 tab PO QDAY 07/26/21 07/26/21 Unknown History [Dialyvite 800 Chewable Wafer] Furosemide [Lasix TAB] 80 mg PO QDAY 07/26/21 07/26/21 Unknown History Lidocaine HCl [Pain Relief] 80 ml TP QDAY 07/26/21 07/26/21 Unknown History Losartan Potassium 100 mg PO QDAY 07/26/21 07/26/21 Unknown History Ondansetron (Nf) [Zofran TAB] 8 mg PO Q8HR PRN 07/26/21 07/26/21 Unknown History amLODIPine [Norvasc] 10 mg PO DAILY 07/26/21 07/26/21 Unknown History hydrALAZINE [Apresoline TAB] 100 mg PO TID 07/26/21 07/26/21 Unknown History Active Medications: Generic Name Dose Route Start Last Admin Trade Name Jose Jq PRN Reason Stop Dose Admin Acetaminophen 650 mg 07/25/21 18:43 Acetaminophen 325 Mg Tab PO Q4H PRN Pain MILD(1-3)/Fever >100.5/DEWITT Amlodipine Besylate 10 mg 07/25/21 17:00 07/26/21 09:57 Amlodipine 10 Mg Tab PO Not Given QDAY PEDRO Famotidine 10 mg 07/25/21 22:00 07/26/21 23:34 Famotidine 10 Mg Tab PO 10 mg BID PEDRO Administration Heparin Sodium (Porcine) 5,000 unit 07/25/21 22:00 07/26/21 23:34 Heparin 5,000 Unit/1 Ml Vial SUB-Q 5,000 unit Q12HR PEDRO Administration Hydralazine HCl 100 mg 07/25/21 20:00 07/26/21 20:23 Hydralazine 100 Mg Tab PO Not Given TID PEDRO Hydromorphone HCl 0.5 mg 07/25/21 18:43 Hydromorphone 1 Mg/1 Ml Inj IV Q3H PRN Pain , Severe (7-10) Sodium Chloride 100 mls @ 999 mls/hr 07/27/21 09:00 Nacl 0.9% IV JULI PRN Hypotension Losartan Potassium 100 mg 07/25/21 17:00 07/26/21 09:57 Losartan 50 Mg Tab PO Not Given QDAY PEDRO Metoclopramide HCl 5 mg 07/25/21 18:43 Metoclopramide 10 Mg/2 Ml Inj IV Q6H PRN Nausea And Vomiting Metoprolol Tartrate 100 mg 07/25/21 17:00 07/26/21 23:34 Metoprolol Tartrate 100 Mg Tab PO 100 mg BID PEDRO Administration Ondansetron HCl 4 mg 07/25/21 18:43 Ondansetron 4 Mg/2 Ml Inj IV Q8H PRN Nausea And Vomiting Oxycodone/Acetaminophen 1 tab 07/25/21 18:43 Oxycodone /Acetaminophen 5-325mg Tab PO Q6H PRN Pain, Moderate (4-6) Sodium Chloride 10 ml 07/25/21 22:00 07/26/21 23:35 Sodium Chloride 0.9% 10 Ml Flush Syringe IV 10 ml BID PEDRO Administration Sodium Chloride 10 ml 07/25/21 18:43 Sodium Chloride 0.9% 10 Ml Flush Syringe IV PRN PRN LINE FLUSH
--- NOTE | 2021-07-27 13:30 | Progress Note ---
Assessment and Plan Patient is a 26y/o male with a pmhx of ANCA Vasculitis, ESRD on HD, and HTN who presented to [facility] with a complaint of chest pain Atypical Chest Pain(resolved) HTN * Currently chest pain free * EKG shows sinus tachycardia 126 no acute ischemic changes. Trops negativex2. CE pending * Patient outpatient regimen: amlodipine 10mg QD, metoprolol 100mg PO BID, losartan 100mg QD, hydralazine 100mg TID, furosemide 80mg PO QD Elevated D-Dimer * Dimer noted to be elevated. * VQ scan shows low probability of PE ESRD on HD * Nephrology following Plan: Lexiscan stress test today negative for signs of ischemia. Patient cardiac status stable. Patient my be discharged from a cardiac standpoint Patient seen in conjunction with Dr. Gan who agrees with this plan of care. 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 Patient reports chest pain free Patient sinus 60s on monitor Objective Vital Signs Temp Pulse Resp BP BP Pulse Ox Pulse Ox 07/27/21 11:45 73 130/77 07/27/21 11:30 72 128/81 07/27/21 11:15 72 131/79 07/27/21 11:00 71 136/79 07/27/21 10:45 74 135/80 07/27/21 10:30 74 135/79 07/27/21 10:15 73 131/74 07/27/21 10:00 72 132/80 97 07/27/21 09:50 76 127/66 07/27/21 08:44 123/71 07/27/21 08:43 122/73 07/27/21 08:42 120/72 07/27/21 08:41 125/77 07/27/21 08:40 126/80 07/27/21 08:39 131/83 07/27/21 08:34 123/86 07/27/21 08:13 121/79 07/27/21 08:09 122/80 07/27/21 08:00 73 07/27/21 03:43 98.6 F 72 18 97/59 98 07/26/21 23:50 97 07/26/21 22:23 98.8 F 70 18 120/70 97 07/26/21 21:30 74 13 114/72 97 07/26/21 21:15 71 14 114/72 97 07/26/21 21:01 75 20 114/72 98 07/26/21 20:45 76 25 H 125/82 100 07/26/21 20:31 73 20 125/82 100 07/26/21 20:21 75 32 H 125/82 98 07/26/21 20:11 82 25 H 125/82 88 07/26/21 20:01 77 12 125/82 98 07/26/21 19:51 72 17 125/82 100 07/26/21 19:41 75 16 114/75 95 07/26/21 19:31 73 16 114/75 97 07/26/21 19:21 78 15 114/75 100 07/26/21 19:11 79 16 114/75 100 07/26/21 19:01 88 13 114/75 95 07/26/21 18:51 84 11 L 114/75 88 07/26/21 18:41 75 14 114/75 99 07/26/21 18:31 77 15 114/75 100 07/26/21 18:21 71 14 114/75 99 07/26/21 18:11 77 18 114/75 98 07/26/21 18:01 71 17 114/75 99 07/26/21 17:51 80 12 114/75 100 07/26/21 17:42 79 19 121/74 99 07/26/21 17:41 81 15 114/75 100 07/26/21 17:31 77 16 116/70 100 07/26/21 17:21 78 12 116/70 100 07/26/21 17:11 74 16 112/65 98 07/26/21 17:01 83 11 L 118/73 100 07/26/21 16:51 83 12 118/73 100 07/26/21 16:41 79 13 118/71 100 07/26/21 16:31 81 16 117/69 99 07/26/21 16:21 82 18 117/69 87 07/26/21 16:11 79 13 121/71 91 07/26/21 16:01 85 14 127/73 99 07/26/21 15:51 75 10 L 127/73 100 07/26/21 15:41 72 11 L 116/71 100 07/26/21 15:31 74 18 128/83 100 07/26/21 15:21 74 13 128/83 99 07/26/21 15:11 87 16 122/77 100 07/26/21 15:09 78 19 122/71 99 07/26/21 15:01 69 15 121/76 100 07/26/21 14:51 70 12 121/76 98 07/26/21 14:30 98.9 F 71 17 124/72 99 07/26/21 13:55 72 121/74 07/26/21 13:45 69 120/65 07/26/21 13:30 72 123/71 - Physical Examination General: No Apparent Distress HEENT: Positive: EOMI, Normocephaly Neck: Positive: neck supple, trachea midline Cardiac: Positive: Reg Rate and Rhythm Lungs: Positive: clear to auscultation, Normal Breath Sounds Neuro: Positive: Grossly Intact Abdomen: Positive: Soft. Negative: Tender Skin: Negative: Rash Musculoskeletal: No Pain Extremities: Present: lower extr. pulses. Absent: edema - Imaging and Cardiology EKG: report reviewed, image reviewed Echo: report reviewed - Telemetry EKG Rhythm: Sinus Rhythm - EKG Sinus rhythms and dysrhythmias: sinus tachycardia
[2021-07-27] MEDS: HYDROmorphone 1 MG/1 ML INJ IV PRN ×2 (14:10→17:30)
[2021-07-27] MEDS: HEPARIN 5,000 UNIT/1 ML VIAL SUB-Q SCH (14:30)
--- NOTE | 2021-07-27 14:51 | Discharge Summary ---
Providers - Providers Date of Admission: 07/26/21 14:00 Date of discharge: 07/27/21 Attending physician: IDALMIS CASTELLANOS MD 07/25/21 10:16 Consult to Physician [CONS] Urgent Comment: Consulting Provider: LD FLORES Physician Instructions: Reason For Exam: dialysis patient 07/25/21 15:18 Consult to Physician [CONS] Urgent Comment: Consulting Provider: TONI PERALTA Physician Instructions: Reason For Exam: cp, sinus tachy Primary care physician: GLO[facility]TO Hospitalization Reason for admission: Chest pain Condition: Good Pertinent studies: Reviewed. Procedures: Lexiscan (stress test); hemodialysis Hospital course: 26-year-old male with history of end-stage renal disease on hemodialysis Friday and Friday for the last 1 year and history of lupus and hypertension comes in for left-sided chest pain. The patient endorses being consistent with his hemodialysis schedule; however, the patient had to miss his last session (day of admission) due to acute presentation of chest pain. The patient was evaluated in the ED and found to have elevated troponin. Cardiology and nephrology were consulted. The patient underwent nuclear pulmonary scan which revealed low probability of pulmonary embolism. Patient underwent Lexiscan (nuclear stress test) that was negative for ischemic cardiac changes. The patient underwent hemodialysis x2 while hospitalized. The patient can be safely discharged home with family. Disposition: 01 HOME / SELF CARE / HOMELESS Final Discharge Diagnosis (Prints w/discharge instructions): Elevated troponin (type II) Time spent for discharge: 35 Core Measure Documentation - Palliative Care Palliative Care/ Comfort Measures: Not Applicable - Core Measures Any of the following diagnoses?: none - VTE Discharge Requirements Deep Vein Thrombosis/Pulmonary Embolism Present on Admission: No Has pt received <5 days of overlap therapy or INR<2.0: No (None) Anticoagulant overlap therapy prescribed at discharge: No (Not applicable) Contraindication No Overlap Therapy order at DC: Not Indicated - Acute NH Discharge Requirements Aspirin at discharge: No Reason for no aspirin on DC: Medical contraindication (Not indicated) AMARI/ARB for LVSD if EF <40%: Not Applicable Reason for no AMARI/ARB: Medical contraindication (Not indicated) Beta yumiko at discharge: No Reason for no beta yumiko on DC: Medical contraindication (Not indicated) Statin for LDL = or >100 mg/dl on DC: Not Applicable Reason for no statin on DC: Medical contraindication (Not indicated) - Heart Failure Discharge Requirements AMARI/ARB for LVSD if EF <40%: Not Applicable Reason for no AMARI/ARB: Medical contraindication (Not indicated) Beta yumiko at discharge: No Reason for no beta yumiko on DC: Medical contraindication (Not indicated) - Stroke Discharge Requirements Statin for LDL = or >70 mg/dl on DC: Not Applicable Reason for no statin on DC: Not Indicated Anticoag for atrial fib/atrial flutter: Not Applicable Reason for no anticoag for AF/F on DC: Not Indicated Antithrombotic for ischemic stroke: No Reason for no antithrombotic on DC: Not Indicated Exam - Constitutional Vitals: Temp Pulse Resp BP Pulse Ox 98.6 F 73 18 130/77 97 07/27/21 03:43 07/27/21 11:45 07/27/21 03:43 07/27/21 11:45 07/27/21 10:00 General appearance: Present: no acute distress - EENT Eyes: Present: PERRL, EOM intact ENT: hearing intact, clear oral mucosa, dentition normal - Neck Neck: Present: supple, normal ROM - Respiratory Respiratory effort: normal - Cardiovascular Rhythm: regular Heart Sounds: Present: S1 & S2 - Extremities Extremities: no ischemia, pulses intact, pulses symmetrical, No edema, normal temperature, normal color Peripheral Pulses: within normal limits - Abdominal General gastrointestinal: Present: soft, non-tender, non-distended, normal bowel sounds Male genitourinary: Present: deferred - Rectal Rectal Exam: deferred - Integumentary Integumentary: Present: clear, warm, dry - Musculoskeletal Musculoskeletal: strength equal bilaterally - Psychiatric Psychiatric: appropriate mood/affect, intact judgment & insight, memory intact, cooperative - Neurologic Neurologic: CNII-XII intact, moves all extremities - Allied Health Allied health notes reviewed: nursing Plan Health Concerns: Patient should return back to the ER if they experience any of the following: Chest pain/pressure, shortness of breath, worsening swelling, inability to lay down flat, confusion, weakness, or inability to tolerate oral intake. Assessment: Patient discharging home with family. Follow up with: PRIMARY CAREMD [Primary Care Provider] - 7 Days
--- NOTE | 2021-07-27 15:52 | Treadmill Report ---
DATE OF SERVICE: 07/27/2021 NUCLEAR STRESS TEST REFERRING PHYSICIAN: Hospitalist service. PROTOCOL: The patient was assessed in postoperative state given 10 mCi of technetium at rest. The patient underwent Lexiscan stress test per standard protocol. At peak stress, the patient given 26 mCi technetium. Shortly, thereafter, the patient had stress imaging. Raw imaging reveals mild GI artifact, no significant motion effect. SPECT images examined carefully in horizontal long axis, vertical long axis, short axis views. There was normal mitral uptake of radioisotope in all port segments. No evidence of significant fixed or reversible perfusion defect suggestive of prior infarction or ischemia. Gated wall motion reveals normal systolic thickening, calculated ejection fraction of 50%. No TID. CONCLUSIONS: 1. Normal myocardial perfusion scan without evidence of active ischemia or prior infarction. 2. Normal left ventricular systolic performance without evidence of transient ischemic dilatation or stress induced segmental wall motion abnormalities. TID: [id number] RECEIPT: [id number] SB/[facility]
[2021-07-27] MEDS: METOPROLOL TARTRATE 100 MG TAB PO SCH (17:53)
[2021-07-27] MEDS: LOSARTAN 50 MG TAB PO SCH (17:53)
[2021-07-27] MEDS: amLODIPine 10 MG TAB PO SCH (17:53)
[2021-07-27] MEDS: FAMOTIDINE 10 MG TAB PO SCH (17:54)
[2021-07-27 18:28] VITALS: BP 126/97
== END 2021-07-27 18:52 | disposition home or self-care (01) | DRG 640 ==
LOC: ED 07:45 → 4A 15:38 → OBSVTOIN 07-26 14:00 → 4A 07-26 19:43
PROVIDERS: ADMIT Internal Medicine; ATTEND Student in an Organized Health Care Education/Training Program
PROC: 5A1D70Z Performance of Urinary Filtration, Intermittent, Less than 6 Hours Per Day (ICD-10-PCS; principal; 2021-07-26)
PROC: 5A1D70Z Performance of Urinary Filtration, Intermittent, Less than 6 Hours Per Day (ICD-10-PCS; 2021-07-27)
DX: E87.79 Other fluid overload (principal); N18.6 End stage renal disease; I21.A1 Myocardial infarction type 2; I12.0 Hypertensive chronic kidney disease with stage 5 chronic kidney disease or end stage renal disease; I47.1 Supraventricular tachycardia; N25.81 Secondary hyperparathyroidism of renal origin; Z82.49 Family history of ischemic heart disease and other diseases of the circulatory system; I77.89 Other specified disorders of arteries and arterioles; D64.9 Anemia, unspecified; R77.8 Other specified abnormalities of plasma proteins
CPT/HCPCS: 36415; 71045; 78452; 78580; 80048; 80053; 80061; 80074; 84439; 84443; 84484; 85025; 85379; 93005; 93017; 93306; 96374; 96375; G0378; A9502; A9540; J1170; J1644; J2270; J2405; J2785